=== PATIENT | female | born 1945 | race Caucasian/White ===

== ENCOUNTER 2022-05-30 08:30 | Inpatient (IN) ==
[2022-05-30] MEDS ORDERED: methylPREDNISolone SOD SUC 125 MG/2 ML VIAL IV STA (08:41)
[2022-05-30] MEDS ORDERED: ALBUTEROL NEB SOLN 5 MG/ML 20 ML/BOTTLE CONT NEB SCH (09:00)
[2022-05-30 09:07] LABS: Basophils % 0.4 % (0.0-0.8); Eosinophils # 0.2 10*3/uL (0.0-0.87); Eosinophils % 2.2 % (0.00-10.9); Hematocrit 43.2 VOL% (35.7-47.0); Hemoglobin 13.6 GM/DL (12.0-16.0); Immature Granulocytes % 0.6 %; Immature Granulocytes Absolute 0.05 #; Lymphocytes # 0.7 10*3/uL (1.4-4.0); Lymphocytes % 7.7 % (21.3-54.2); Mean Corpuscular HGB Conc 31.5 GM/DL (32-36); Mean Corpuscular Volume 96.6 FL (87-102); Monocytes # 0.7 10*3/uL (0.11-0.8); Monocytes % 7.6 % (1.7-12.7); Neutrophils % 81.5 % (38.7-73.9); Platelet Count 163 T/CUMM (130-400); Red Blood Count 4.47 MC/CUMM (3.8-5.5); Red Cell Distribution Width 14.4 % (9.3-17.3); White Blood Count 8.9 T/CUMM (4-12)
[2022-05-30 09:14] LABS: Arterial Base Excess iSTAT 3 MMOL/L (-2.5-2.5); Arterial Bicarbonate iSTAT 29.5 MMOL/L (20-26); Arterial O2 Saturation iSTAT 96 % (95-100); Arterial PCO2 iSTAT 52 MM HG (35-48); Arterial PO2 iSTAT 88 MM HG (80-95); Arterial Total CO2 iSTAT 31 MMO/L (23-27); Arterial pH iSTAT 7.359 (7.35-7.45)
[2022-05-30 09:16] LABS: PT Patient Result 10.7 SECS (10.1-12.1); Partial Thromboplastin Time 22.7 SECS (23.7-32.9)
[2022-05-30 09:34] LABS: Albumin 3.7 G/DL (3.4-5.0); Bilirubin,Total 0.7 MG/DL (0.20-1.00); Calcium 9.3 MG/DL (8.5-10.1); Osmolality,Calculated 284.3 MOS/KG (273-304); Potassium 3.7 MMOL/L (3.5-5.1); Total Protein 7.4 G/DL (6.4-8.2)
[2022-05-30] MEDS ORDERED: ALBUTEROL 2.5 MG/3 ML NEB RESP TX ONE (10:29)
[2022-05-30] MEDS ORDERED: ALBUTEROL 2.5 MG/3 ML NEB RESP TX PRN (11:09)
[2022-05-30] MEDS ORDERED: ONDANSETRON 4 MG/2 ML VIAL IV PRN (11:09)
[2022-05-30] MEDS ORDERED: GLUCAGON 1 MG VIAL IM PRN (11:14)
[2022-05-30] MEDS ORDERED: DEXTROSE 10% 250 ML BAG IV PRN (12:16)
[2022-05-30 13:10] LABS: Bilirubin,Urine Negative (Negative); Blood, Urine Negative (Negative); Glucose,Urine (UA) Negative (Negative); Hyaline Casts,Urine 1 /LPF (0-3); Ketones,Urine Negative (Negative); Mucus,Urine Occasional /LPF (Occasional); Nitrite,Urine Negative (Negative); Protein,Urine Negative (Negative); RBC,Urine <1 /HPF (0-4); Squamous Epithelial Cell,Urine Occasional /HPF (0-10); Urine Appearance Clear (Clear); Urine Color Yellow (Yellow); Urine Urobilinogen 0.2 eU/dL (<2.0); Urine pH 5.5 (4.5-8.0)
[2022-05-30] MEDS: ALBUTEROL/IPRATROPIUM 3 ML NEB RESP TX SCH ×2 (14:25→19:52)
[2022-05-30] MEDS: INSULIN LISPRO 100 UNIT/ML SUBCUT SCH ×3 (18:35→22:03)
[2022-05-30] MEDS: INSULIN GLARGINE 100 UNIT/ML SUBCUT SCH (18:36)
[2022-05-30] MEDS: LEVOFLOXACIN INJ 500 MG/100 ML PREMIX IV SCH (18:36)
[2022-05-30] MEDS: methylPREDNISolone SOD SUC 125 MG/2 ML VIAL IV SCH ×2 (18:36→22:32)
[2022-05-30] MEDS: SPIRONOLACTONE 25 MG TABLET PO SCH (18:37)
[2022-05-30 19:38] LABS: Barbiturates Screen,Urine Negative (Negative); Benzodiazepines Screen,Urine Negative (Negative); Cannabinoid Screen,Urine Negative (Negative); Opiate Screen,Urine Negative (Negative); Phencyclidine Screen,Urine Negative (Negative)
[2022-05-30] MEDS: ARFORMOTEROL 15 MCG/2 ML NEB RESP TX SCH (19:52)
[2022-05-30] MEDS: BUDESONIDE 0.5 MG/2 ML NEB RESP TX SCH (19:52)
[2022-05-30] MEDS: ENOXAPARIN 40 MG/0.4 ML SYRINGE SUBCUT SCH (22:00)
[2022-05-31] MEDS: ALBUTEROL/IPRATROPIUM 3 ML NEB RESP TX SCH ×5 (00:37→23:58)
[2022-05-31 04:09] LABS: Arterial Base Excess iSTAT 4 MMOL/L (-2.5-2.5); Arterial O2 Saturation iSTAT 95 % (95-100); Arterial PCO2 iSTAT 49 MM HG (35-48); Arterial PO2 iSTAT 79 MM HG (80-95); Arterial Total CO2 iSTAT 32 MMO/L (23-27); Arterial pH iSTAT 7.396 (7.35-7.45)
[2022-05-31] MEDS: methylPREDNISolone SOD SUC 125 MG/2 ML VIAL IV SCH ×4 (04:26→20:11)
[2022-05-31 06:09] LABS: Basophils % 0.1 % (0.0-0.8); Hematocrit 38.3 VOL% (35.7-47.0); Hemoglobin 12.1 GM/DL (12.0-16.0); Immature Granulocytes % 0.4 %; Immature Granulocytes Absolute 0.04 #; Lymphocytes # 0.5 10*3/uL (1.4-4.0); Lymphocytes % 4.8 % (21.3-54.2); Mean Corpuscular HGB Conc 31.6 GM/DL (32-36); Mean Corpuscular Volume 96.2 FL (87-102); Mean Platelet Volume 10.3 FL (9.6-12.0); Monocytes # 0.5 10*3/uL (0.11-0.8); Monocytes % 5.5 % (1.7-12.7); Neutrophils % 89.2 % (38.7-73.9); Platelet Count 178 T/CUMM (130-400); Red Blood Count 3.98 MC/CUMM (3.8-5.5); Red Cell Distribution Width 14.3 % (9.3-17.3); White Blood Count 9.5 T/CUMM (4-12)
[2022-05-31 06:32] LABS: Osmolality,Calculated 284.4 MOS/KG (273-304); Potassium 3.9 MMOL/L (3.5-5.1)
[2022-05-31] MEDS: LEVOTHYROXINE 75 MCG TABLET PO SCH (06:40)
[2022-05-31 07:05] LABS: Hypochromia Slight; Lymphocytes 1 % (20-55); Platelet Estimate Adequate
[2022-05-31] MEDS: BUDESONIDE 0.5 MG/2 ML NEB RESP TX SCH ×2 (07:05→18:51)
[2022-05-31 07:06] LABS: Microcytosis Slight; Total Cells Counted 100
[2022-05-31] MEDS: ARFORMOTEROL 15 MCG/2 ML NEB RESP TX SCH ×2 (07:13→18:50)
[2022-05-31] MEDS: FUROSEMIDE 40 MG TABLET PO SCH (08:02)
[2022-05-31] MEDS: SPIRONOLACTONE 25 MG TABLET PO SCH ×2 (08:02→17:01)
[2022-05-31] MEDS: POTASSIUM CHLORIDE 20 MEQ TABLET PO SCH (08:02)
[2022-05-31] MEDS: MONTELUKAST 10 MG TABLET PO SCH (08:02)
[2022-05-31] MEDS: PANTOPRAZOLE 40 MG TABLET PO SCH (08:03)
[2022-05-31] MEDS: INSULIN GLARGINE 100 UNIT/ML SUBCUT SCH (08:35)
[2022-05-31] MEDS: INSULIN LISPRO 100 UNIT/ML SUBCUT SCH ×4 (08:54→20:12)
[2022-05-31] MEDS ORDERED: CITALOPRAM 20 MG TABLET PO SCH (09:00)
[2022-05-31] MEDS: LEVOFLOXACIN INJ 500 MG/100 ML PREMIX IV SCH (12:05)
[2022-05-31] MEDS ORDERED: DUPIXENT SUBCUT ONE ×2 (13:00→15:00)
[2022-05-31] MEDS ORDERED: LIDOCAINE 1% 20 ML VIAL MISC INJ ONE (15:14)
[2022-05-31] MEDS: ENOXAPARIN 40 MG/0.4 ML SYRINGE SUBCUT SCH (20:12)
[2022-06-01] MEDS: methylPREDNISolone SOD SUC 125 MG/2 ML VIAL IV SCH ×4 (03:16→20:47)
[2022-06-01 04:36] LABS: Arterial Base Excess iSTAT 5 MMOL/L (-2.5-2.5); Arterial Bicarbonate iSTAT 31.8 MMOL/L (20-26); Arterial O2 Saturation iSTAT 95 % (95-100); Arterial PCO2 iSTAT 52 MM HG (35-48); Arterial PO2 iSTAT 78 MM HG (80-95); Arterial Total CO2 iSTAT 33 MMO/L (23-27)
[2022-06-01 05:47] LABS: Basophils % 0.1 % (0.0-0.8); Hematocrit 40.5 VOL% (35.7-47.0); Hemoglobin 12.6 GM/DL (12.0-16.0); Immature Granulocytes % 0.8 %; Lymphocytes # 0.5 10*3/uL (1.4-4.0); Lymphocytes % 3.6 % (21.3-54.2); Mean Corpuscular HGB Conc 31.1 GM/DL (32-36); Mean Platelet Volume 10.5 FL (9.6-12.0); Monocytes # 0.3 10*3/uL (0.11-0.8); Monocytes % 2.4 % (1.7-12.7); Neutrophils % 93.1 % (38.7-73.9); Platelet Count 208 T/CUMM (130-400); Red Blood Count 4.22 MC/CUMM (3.8-5.5); Red Cell Distribution Width 14.5 % (9.3-17.3); White Blood Count 13.2 T/CUMM (4-12)
[2022-06-01 06:11] LABS: Calcium 9.6 MG/DL (8.5-10.1); Osmolality,Calculated 292.3 MOS/KG (273-304)
[2022-06-01 06:13] LABS: Lymphocytes 3 % (20-55); Platelet Estimate Adequate; Total Cells Counted 100
[2022-06-01] MEDS ORDERED: MEPERIDINE 50 MG/1 ML VIAL IM ONE (07:00)
[2022-06-01] MEDS ORDERED: PROMETHAZINE 25 MG/1 ML VIAL IM ONE (07:00)
[2022-06-01] MEDS ORDERED: MIDAZOLAM 2 MG/2 ML VIAL ONE (07:27)
[2022-06-01] MEDS ORDERED: MIDAZOLAM 2 MG/2 ML VIAL IV ONE (07:34)
[2022-06-01] MEDS: LEVOTHYROXINE 75 MCG TABLET PO SCH (07:46)
[2022-06-01] MEDS: BUDESONIDE 0.5 MG/2 ML NEB RESP TX SCH ×2 (07:47→19:25)
[2022-06-01] MEDS: ALBUTEROL/IPRATROPIUM 3 ML NEB RESP TX SCH ×3 (07:47→19:25)
[2022-06-01] MEDS: ARFORMOTEROL 15 MCG/2 ML NEB RESP TX SCH ×2 (07:47→20:21)
[2022-06-01] MEDS: INSULIN LISPRO 100 UNIT/ML SUBCUT SCH ×4 (08:33→20:48)
[2022-06-01] MEDS: MONTELUKAST 10 MG TABLET PO SCH (09:43)
[2022-06-01] MEDS: FUROSEMIDE 40 MG TABLET PO SCH (09:44)
[2022-06-01] MEDS: PANTOPRAZOLE 40 MG TABLET PO SCH (09:44)
[2022-06-01] MEDS: POTASSIUM CHLORIDE 20 MEQ TABLET PO SCH (09:44)
[2022-06-01] MEDS: SPIRONOLACTONE 25 MG TABLET PO SCH ×2 (09:44→17:04)
[2022-06-01] MEDS: INSULIN GLARGINE 100 UNIT/ML SUBCUT SCH (10:09)
[2022-06-01] MEDS: LEVOFLOXACIN INJ 500 MG/100 ML PREMIX IV SCH (13:22)
[2022-06-01] MEDS: ENOXAPARIN 40 MG/0.4 ML SYRINGE SUBCUT SCH (20:49)
[2022-06-02] MEDS: ALBUTEROL/IPRATROPIUM 3 ML NEB RESP TX SCH ×4 (00:20→19:21)
[2022-06-02] MEDS: methylPREDNISolone SOD SUC 125 MG/2 ML VIAL IV SCH ×4 (03:18→20:30)
[2022-06-02] MEDS: LEVOTHYROXINE 75 MCG TABLET PO SCH (05:55)
[2022-06-02 06:11] LABS: Hematocrit 40.9 VOL% (35.7-47.0); Hemoglobin 12.7 GM/DL (12.0-16.0); Immature Granulocytes Absolute 0.12 #; Lymphocytes # 0.5 10*3/uL (1.4-4.0); Lymphocytes % 4.3 % (21.3-54.2); Mean Corpuscular HGB Conc 31.1 GM/DL (32-36); Mean Corpuscular Volume 96.2 FL (87-102); Mean Platelet Volume 10.5 FL (9.6-12.0); Monocytes # 0.3 10*3/uL (0.11-0.8); Monocytes % 2.3 % (1.7-12.7); Neutrophils % 92.4 % (38.7-73.9); Platelet Count 200 T/CUMM (130-400); Red Blood Count 4.25 MC/CUMM (3.8-5.5); Red Cell Distribution Width 14.2 % (9.3-17.3); White Blood Count 11.6 T/CUMM (4-12)
[2022-06-02 06:25] LABS: Calcium 9.2 MG/DL (8.5-10.1); Osmolality,Calculated 296.1 MOS/KG (273-304); Potassium 3.6 MMOL/L (3.5-5.1)
[2022-06-02 06:47] LABS: Hypochromia Slight; Lymphocytes 3 % (20-55); Microcytosis Slight; Platelet Estimate Adequate; Total Cells Counted 100
[2022-06-02] MEDS: ARFORMOTEROL 15 MCG/2 ML NEB RESP TX SCH ×2 (07:25→20:55)
[2022-06-02] MEDS: BUDESONIDE 0.5 MG/2 ML NEB RESP TX SCH ×2 (07:25→19:21)
[2022-06-02] MEDS: SPIRONOLACTONE 25 MG TABLET PO SCH ×2 (10:53→18:05)
[2022-06-02] MEDS: POTASSIUM CHLORIDE 20 MEQ TABLET PO SCH (10:53)
[2022-06-02] MEDS: PANTOPRAZOLE 40 MG TABLET PO SCH (10:53)
[2022-06-02] MEDS: FUROSEMIDE 40 MG TABLET PO SCH (10:53)
[2022-06-02] MEDS: INSULIN GLARGINE 100 UNIT/ML SUBCUT SCH (10:53)
[2022-06-02] MEDS: MONTELUKAST 10 MG TABLET PO SCH (10:53)
[2022-06-02] MEDS: INSULIN LISPRO 100 UNIT/ML SUBCUT SCH ×4 (10:54→20:32)
[2022-06-02] MEDS: LEVOFLOXACIN 500 MG TABLET PO SCH (10:56)
[2022-06-02] MEDS: ENOXAPARIN 40 MG/0.4 ML SYRINGE SUBCUT SCH (20:30)
[2022-06-03] MEDS: ALBUTEROL/IPRATROPIUM 3 ML NEB RESP TX SCH ×4 (00:15→19:10)
[2022-06-03] MEDS: methylPREDNISolone SOD SUC 125 MG/2 ML VIAL IV SCH ×4 (03:24→22:10)
[2022-06-03 05:23] LABS: Basophils % 0.1 % (0.0-0.8); Hematocrit 41.6 VOL% (35.7-47.0); Hemoglobin 13.2 GM/DL (12.0-16.0); Immature Granulocytes % 1.2 %; Lymphocytes # 0.5 10*3/uL (1.4-4.0); Lymphocytes % 5.5 % (21.3-54.2); Mean Corpuscular HGB Conc 31.7 GM/DL (32-36); Mean Corpuscular Volume 95.6 FL (87-102); Mean Platelet Volume 10.5 FL (9.6-12.0); Monocytes # 0.2 10*3/uL (0.11-0.8); Monocytes % 2.8 % (1.7-12.7); Neutrophils % 90.4 % (38.7-73.9); Platelet Count 188 T/CUMM (130-400); Red Blood Count 4.35 MC/CUMM (3.8-5.5); Red Cell Distribution Width 14.2 % (9.3-17.3); White Blood Count 8.1 T/CUMM (4-12)
[2022-06-03 05:35] LABS: Calcium 9.4 MG/DL (8.5-10.1); Osmolality,Calculated 294.4 MOS/KG (273-304); Potassium 3.9 MMOL/L (3.5-5.1)
[2022-06-03] MEDS: LEVOTHYROXINE 75 MCG TABLET PO SCH (05:53)
[2022-06-03] MEDS: BUDESONIDE 0.5 MG/2 ML NEB RESP TX SCH ×2 (08:32→19:10)
[2022-06-03] MEDS: INSULIN LISPRO 100 UNIT/ML SUBCUT SCH ×4 (08:32→22:30)
[2022-06-03] MEDS: ARFORMOTEROL 15 MCG/2 ML NEB RESP TX SCH ×2 (09:36→19:16)
[2022-06-03] MEDS: FUROSEMIDE 40 MG TABLET PO SCH (09:39)
[2022-06-03] MEDS: POTASSIUM CHLORIDE 20 MEQ TABLET PO SCH (09:39)
[2022-06-03] MEDS: INSULIN GLARGINE 100 UNIT/ML SUBCUT SCH (09:39)
[2022-06-03] MEDS: SPIRONOLACTONE 25 MG TABLET PO SCH ×2 (09:40→16:53)
[2022-06-03] MEDS: PANTOPRAZOLE 40 MG TABLET PO SCH (09:40)
[2022-06-03] MEDS: MONTELUKAST 10 MG TABLET PO SCH (09:40)
[2022-06-03] MEDS: LEVOFLOXACIN 500 MG TABLET PO SCH (09:40)
[2022-06-03 12:24] LABS: Arterial Base Excess iSTAT 7 MMOL/L (-2.5-2.5); Arterial Bicarbonate iSTAT 32.3 MMOL/L (20-26); Arterial O2 Saturation iSTAT 93 % (95-100); Arterial PCO2 iSTAT 49 MM HG (35-48); Arterial PO2 iSTAT 67 MM HG (80-95); Arterial Total CO2 iSTAT 34 MMO/L (23-27); Arterial pH iSTAT 7.428 (7.35-7.45)
[2022-06-03] MEDS: ENOXAPARIN 40 MG/0.4 ML SYRINGE SUBCUT SCH (22:10)
[2022-06-04] MEDS: ALBUTEROL/IPRATROPIUM 3 ML NEB RESP TX SCH ×4 (00:37→19:25)
[2022-06-04 05:12] LABS: Basophils % 0.2 % (0.0-0.8); Hematocrit 43.1 VOL% (35.7-47.0); Hemoglobin 13.5 GM/DL (12.0-16.0); Immature Granulocytes % 2.5 %; Immature Granulocytes Absolute 0.23 #; Lymphocytes # 0.5 10*3/uL (1.4-4.0); Lymphocytes % 5.7 % (21.3-54.2); Mean Corpuscular HGB Conc 31.3 GM/DL (32-36); Mean Corpuscular Volume 95.4 FL (87-102); Mean Platelet Volume 10.3 FL (9.6-12.0); Monocytes # 0.6 10*3/uL (0.11-0.8); Neutrophils % 85.6 % (38.7-73.9); Platelet Count 197 T/CUMM (130-400); Red Blood Count 4.52 MC/CUMM (3.8-5.5); Red Cell Distribution Width 14.3 % (9.3-17.3); White Blood Count 9.3 T/CUMM (4-12)
[2022-06-04] MEDS: methylPREDNISolone SOD SUC 125 MG/2 ML VIAL IV SCH ×3 (05:25→21:11)
[2022-06-04 05:30] LABS: Calcium 8.9 MG/DL (8.5-10.1); Potassium 3.5 MMOL/L (3.5-5.1)
[2022-06-04] MEDS: LEVOTHYROXINE 75 MCG TABLET PO SCH (05:32)
[2022-06-04] MEDS: ARFORMOTEROL 15 MCG/2 ML NEB RESP TX SCH ×2 (07:16→20:19)
[2022-06-04] MEDS: BUDESONIDE 0.5 MG/2 ML NEB RESP TX SCH ×2 (07:16→19:25)
[2022-06-04 09:26] LABS: Arterial Base Excess iSTAT 3 MMOL/L (-2.5-2.5); Arterial Bicarbonate iSTAT 28.4 MMOL/L (20-26); Arterial O2 Saturation iSTAT 89 % (95-100); Arterial PCO2 iSTAT 47 MM HG (35-48); Arterial PO2 iSTAT 59 MM HG (80-95); Arterial Total CO2 iSTAT 30 MMO/L (23-27); Arterial pH iSTAT 7.391 (7.35-7.45)
[2022-06-04] MEDS: FUROSEMIDE 40 MG TABLET PO SCH (09:38)
[2022-06-04] MEDS: LEVOFLOXACIN 500 MG TABLET PO SCH (09:38)
[2022-06-04] MEDS: SPIRONOLACTONE 25 MG TABLET PO SCH ×2 (09:38→16:35)
[2022-06-04] MEDS: MONTELUKAST 10 MG TABLET PO SCH (09:38)
[2022-06-04] MEDS: PANTOPRAZOLE 40 MG TABLET PO SCH (09:38)
[2022-06-04] MEDS: INSULIN GLARGINE 100 UNIT/ML SUBCUT SCH (09:38)
[2022-06-04] MEDS: INSULIN LISPRO 100 UNIT/ML SUBCUT SCH ×4 (10:20→21:13)
[2022-06-04] MEDS ORDERED: INSULIN GLARGINE 100 UNIT/ML SUBCUT SCH (21:00)
[2022-06-04] MEDS: ENOXAPARIN 40 MG/0.4 ML SYRINGE SUBCUT SCH (21:15)
[2022-06-05] MEDS: ALBUTEROL/IPRATROPIUM 3 ML NEB RESP TX SCH ×2 (00:25→07:15)
[2022-06-05] MEDS ORDERED: methylPREDNISolone SOD SUC 40 MG/1 ML VIAL IV SCH (04:00)
[2022-06-05] MEDS: LEVOTHYROXINE 75 MCG TABLET PO SCH (05:41)
[2022-06-05 05:48] LABS: Basophils % 0.2 % (0.0-0.8); Hematocrit 39.4 VOL% (35.7-47.0); Hemoglobin 12.6 GM/DL (12.0-16.0); Immature Granulocytes % 1.8 %; Immature Granulocytes Absolute 0.18 #; Lymphocytes % 10.3 % (21.3-54.2); Mean Corpuscular Volume 94.7 FL (87-102); Mean Platelet Volume 10.6 FL (9.6-12.0); Monocytes # 0.9 10*3/uL (0.11-0.8); Monocytes % 8.9 % (1.7-12.7); Neutrophils % 78.8 % (38.7-73.9); Platelet Count 174 T/CUMM (130-400); Red Blood Count 4.16 MC/CUMM (3.8-5.5); Red Cell Distribution Width 14.5 % (9.3-17.3); White Blood Count 9.9 T/CUMM (4-12)
[2022-06-05 06:12] LABS: Calcium 8.7 MG/DL (8.5-10.1); Osmolality,Calculated 287.3 MOS/KG (273-304); Potassium 3.2 MMOL/L (3.5-5.1)
[2022-06-05] MEDS: BUDESONIDE 0.5 MG/2 ML NEB RESP TX SCH (07:15)
[2022-06-05] MEDS: ARFORMOTEROL 15 MCG/2 ML NEB RESP TX SCH (07:15)
[2022-06-05] MEDS ORDERED: predniSONE 20 MG TABLET PO SCH (09:00)
[2022-06-05] MEDS: INSULIN LISPRO 100 UNIT/ML SUBCUT SCH ×2 (10:46→12:50)
[2022-06-05] MEDS: FUROSEMIDE 40 MG TABLET PO SCH (10:49)
[2022-06-05] MEDS: LEVOFLOXACIN 500 MG TABLET PO SCH (10:49)
[2022-06-05] MEDS: SPIRONOLACTONE 25 MG TABLET PO SCH (10:49)
[2022-06-05] MEDS: MONTELUKAST 10 MG TABLET PO SCH (10:50)
[2022-06-05] MEDS: PANTOPRAZOLE 40 MG TABLET PO SCH (10:50)
[2022-06-05] MEDS ORDERED: POTASSIUM CHLORIDE 20 MEQ TABLET PO ONE (11:00)
[2022-06-05 11:31] VITALS: BP 121/57
== END 2022-06-05 14:00 | disposition home health service (06) | DRG 190 ==
LOC: N.ED 08:30 → N.EDINP 11:09 → SUATTDRO 11:09 → N.ICU 12:29 → N.2E 06-01 16:28
PROVIDERS: ADMIT Internal Medicine; ATTEND Internal Medicine